=== PATIENT | male | born 1995 | race Caucasian/White ===

== ENCOUNTER 2018-06-16 23:19 | Emergency (ER) | payer MEDICAID ==
[~2018-06-16] VITALS: Ht 175.3 cm; Wt 64.9 kg
[2018-06-17 02:05] VITALS: BP 125/70
== END 2018-06-17 02:05 | disposition home or self-care (01) ==
LOC: ED 23:19
DX: S93.134A Subluxation of interphalangeal joint of right lesser toe(s), initial encounter (principal); W17.89XA Other fall from one level to another, initial encounter; Y93.89 Activity, other specified; Y92.89 Other specified places as the place of occurrence of the external cause; Y99.8 Other external cause status
CPT/HCPCS: J3490